=== PATIENT | female | born 1960 | race Caucasian/White ===

== ENCOUNTER → 2020-12-01 | Outpatient (CLI) | payer BC | LOC: HEART CORB 13:02 | DX: R55 Syncope and collapse (principal) ==

== ENCOUNTER → 2020-12-15 | Outpatient (CLI) | payer BC | LOC: HEART CORB 14:13 | DX: I10 Essential (primary) hypertension (principal); R55 Syncope and collapse; I08.1 Rheumatic disorders of both mitral and tricuspid valves | CPT/HCPCS: 93306 ==